=== PATIENT | female | born 1945 | race Caucasian/White ===

== ENCOUNTER 2016-02-26 12:07 | Emergency (ER) | payer MEDICARE ==
[2015-12-29 13:50] VITALS: BMI 24.2
[~2016-02-26 12:07] MED LIST: ACTOS30 MG PO; ADVAIR 250/501 DISK INH; AMARYL1 MG PO; ASPIRIN EC81 M1 PO; BAYER CHEWABLE81 MG PO; CARAFATE1 G/10 ML PO; CATAPRES0.1 MG PO; COMBIVENT RESPIM4 GM INH; CYCLOBENZAPRINE10 MG PO; FOSINOPRIL SODI40 MG PO; GLIMEPIRIDE1 MG PO; HYDRALAZINE HCL50 MG PO; IMDUR30 MG PO; INVOKANA100 MG PO; JANUVIA100 MG PO; JANUVIA25 MG; K-DUR20 MEQ PO; KLONOPIN1 MG PO; LASIX40 MG PO; LOPID600 MG PO; NEURONTIN 300300 MG PO; NITROQUICK0.4 MG SL; NORVASC5 MG GT; PAXIL20 MG PO; PLAVIX75 MG PO; PRILOSEC20 MG PO; PROTONIX40 MG PO; RANEXA500 MG PO; SYMBICORT 16010.2 GM INH; TOPROL XL100 MG PO; ULTRAM50 MG PO; ZETIA10 MG PO
[2016-02-26 13:28] LABS: BASOPHILS 0.7 % (0.0-2.0); EOSINOPHILS 4.3 % (0-7); HEMOGLOBIN 10.1 g/dL (12-16); IMMATURE GRANULOCYTES 0.1 % (0-5); LYMPHOCYTES 32.8 % (15-50); MCH 23.7 pg (26.0-34.0); MCHC 29.7 g/dL (31.0-37.0); MCV 79.8 fL (80.0-100.0); MEAN PLATELET VOLUME 10.3 fL (7.4-10.4); MONOCYTES 6.3 % (2-11); NEUTROPHILS 55.8 % (40-80); PLATELET COUNT 214 10x3/uL (130-400); RBC 4.26 10x6/uL (4.00-5.40); WBC 7.6 10x3/uL (4.8-10.8)
[2016-02-26 13:34] LABS: ALBUMIN 3.9 g/dL (3.4-5.0); ALKALINE PHOSPHATASE 65 U/L (46-116); ALT (SGPT) 34 U/L (10-68); BILIRUBIN - TOTAL 0.34 mg/dL (0.2-1.3); CALC OSMOLALITY 286 mosm/kg (275-300); CALCIUM 8.7 mg/dL (8.5-10.1); CARBON DIOXIDE 30.1 mmol/L (21.0-32.0); CHLORIDE - SERUM 104 mmol/L (98-107); CREATININE - SERUM 0.9 mg/dL (0.6-1.3); POTASSIUM - SERUM 3.6 mmol/L (3.5-5.1); PROTEIN - SERUM 7.7 g/dL (6.4-8.2); SODIUM 143 mmol/L (136-145); UREA NITROGEN 13 mg/dL (7-18); eGFR NON AFRICAN AMERICAN 65 mL/min (90-120)
[2016-02-26 13:35] LABS: GLUCOSE 129 mg/dL (74-106)
[2016-02-26 13:42] LABS: PRO BNP 719 pg/mL (0-125)
[2016-02-26 13:43] LABS: TROPONIN-I < 0.017 ng/mL (0.000-0.060)
--- NOTE | 2016-03-04 11:11 | CN ---
PATIENT NAME:EVANGELISTA FERREIRA MEDICAL RECORD: [id number] : 41 LOCATION:D.ER ADMIT DATE: ACCOUNT: [id number] CONSULTING PHYSICIAN: SHUKRI LOPEZ MD REFERRING PHYSICIAN: CECI MOROCHO MD DATE OF CONSULTATION: 02/26/2016 DIAGNOSES: 1. Angina. 2. Shortness of breath. 3. Dyspnea on exertion. 4. Coronary artery disease. 5. Previous percutaneous transluminal coronary angioplasty stent. 6. Hypertension. 7. Hyperlipidemia. HISTORY OF PRESENT ILLNESS: Mrs. Ferreira is status post recent 2-vessel PTCA stent. She has continued to have some anginal symptomatology and shortness of breath especially when using her arms above her head, but it is markedly improved from before the stent. Her EKG is with no ST-T abnormalities. Heart rate and blood pressure optimal on her current medications. PHYSICAL EXAMINATION: GENERAL APPEARANCE: Well-nourished, well-developed, appears stated age. Level of distress, comfortable. PSYCHIATRIC: Mental status, alert, normal affect. Orientation, oriented to time, place and person. EYES: Lids and conjunctiva, noninjected. No discharge, no pallor. ENT: Lips, teeth, gums, normal dentition. Oropharynx, no cyanosis, no pallor. NECK: Carotid arteries, bilateral normal upstroke, no bruits, no thrills. JUGULAR VEINS: No jugular venous pressure or distention. CERVICAL LYMPH NODES: Nontender, nonenlarged. THYROID: Not enlarged. Nontender. No nodules. LUNGS: Respiratory effort, unlabored. CHEST: Normal curvature. No thoracic deformity. No chest wall tenderness. Percussion, resonant. Auscultation, clear. No wheezes, no rales, no rhonchi. CARDIOVASCULAR: Precordial exam, nondisplaced. No heaves or pericardial thrills. Rate and rhythm, regular. Heart sounds, normal S1, normal S2. No S3, no gallop, no rub. Systolic murmur, not heard. Diastolic murmur, not heard. EXTREMITIES: No cyanosis, no edema. Peripheral pulses, full and equal in all extremities, except as noted. No bruits appreciated. ABDOMEN: Soft, nondistended. Normal aorta. No bruit. Nontender. No masses. Liver, nontender, no hepatomegaly. Spleen, nontender, no splenomegaly. MUSCULOSKELETAL: No joint tenderness. No joint swelling. No erythema. NEUROLOGICAL: Normal gait, normal strength, normal tone. SKIN: Warm and dry. REVIEW OF SYSTEMS: The patient reports easy bruising but reports no swollen glands. The patient reports no fever, no night sweats, no significant weight gain, no significant weight loss. No significant exercise tolerance. The patient reports no dry eyes, no irritation, no vision change. Patient reports no difficulty hearing and no ear pain. Patient reports no frequent nose bleeds or nose and sinus problems. Patient reports on arm pain on exertion. No shortness of breath while lying down. No history of heart murmur. Patient reports no cough, no wheezing or coughing up blood. Patient reports no CONSULT REPORT [id number] WHITE,EVANGELISTA SEN abdominal pain, no vomiting. Normal appetite. No diarrhea and not vomiting blood. No nausea and no constipation. Patient reports no incontinence. No difficulty urinating. No hematuria. No increased frequency. Patient reports no muscle aches. No weakness, no arthralgias, no back pain. No swelling of the extremities. Patient reports no abnormal mole, no jaundice, no rashes. Reports no loss of consciousness. No weakness and no numbness. No seizures, dizziness, or headaches. The patient reports no depression, no sleep disturbance, feeling safe in a relationship and no alcohol abuse. Patient reports on fatigue. Reports no runny nose or sinus pressure. No itching, no hives, and no frequent sneezing. OVERALL IMPRESSION: Anginal symptomatology. At this time, it is most likely chronic stable angina, reviewed her cardiac catheterization film. She has significant irregularities throughout all vessels with diffuse disease of all vessels. She would clearly be predisposed to angina, it is markedly better after her percutaneous transluminal coronary angioplasty stent. At this time, there is really no room for any other percutaneous transluminal coronary angioplasty stent areas. I would increase her Imdur to 90 mg b.i.d. We will follow up with [facility] in 1 week. TRANSINT:[id number] Voice Confirmation ID: [id number] DOCUMENT ID: [id number] SHUKRI LOPEZ MD at 1111 CC: [id number] DICTATION DATE: 02/26/16 1506 BOOKY: 02/26/16 1548 DEP ER 02/26/16 [facility] [address] [place] [address]
== END 2016-02-26 15:43 | disposition home or self-care (01) ==
LOC: D.ER 12:07
PROVIDERS: Emergency Medicine
DX: R06.00 Dyspnea, unspecified (principal); E11.9 Type 2 diabetes mellitus without complications; I25.10 Atherosclerotic heart disease of native coronary artery without angina pectoris; I50.9 Heart failure, unspecified; D64.9 Anemia, unspecified; I10 Essential (primary) hypertension; F17.200 Nicotine dependence, unspecified, uncomplicated

== ENCOUNTER 2016-04-02 12:49 | Inpatient (IN) | payer MEDICARE ==
[~2016-04-02] VITALS: Ht 162.6 cm; Wt 71.5 kg
--- NOTE | ~2016-04-02 | HEMODYNAMI ---
PATIENT:EVANGELISTA FERREIRA MEDICAL RECORD: [id number] : 41 LOCATION:[facility] D.2118 ADMISSION DATE: 04/02/16 Generatedon:04/03/20169:46 Patient name: EVANGELISTA FERREIRA Patient #: [id number] SSN: : 1 Date of study: 04/03/2016 Page: Of Hemodynamic Procedure Report Patient Data Patient Demographics Procedure consent was obtained First Name: EVANGELISTA Gender: Female Last Name: HANNA : 1945 [facility] Initial: SEN Age: 70 year(s) Patient #: [id number] Race: Additional ID: [id number] Contact details Address: [place] [address] State: [place] City: [place] Zip code: [address] Past Medical History Allergies Allergen Reaction Date Comments Reported Codeine 03/20/2015 Codeine 12/29/2015 Codeine 12/30/2015 Codeine 04/03/2016 Admission Admission Data Admission Date: 04/02/2016 Admission Time: 15:13 Room #: D.2118 Lab Results Lab Result Date: 04/03/2016 Lab Result Time: 0:00 Biochemistry Name Units Result Min Max BUN mg/dl 23 --(----)-* 7 18 Creatinine mg/dl 1 --(--*-)-- 0.6 1.3 CBC Name Units Result Min Max Hemoglobin g/dl 9.8 *-(----)-- 13.5 17.5 Procedure Procedure Types Cath Procedure Diagnostic Procedure LHC LHC w/Coronaries Miscellaneous Procedures Moderate Sedation up to 45 minutes Procedure Description Procedure Date Procedure Date: 04/03/2016 Procedure Start Time: 9:10 Procedure End Time: 9:42 Procedure Staff Name Function Sydney Peter RT Scrub Melanie Pereyra RN Nurse Lam Griffin RT Monitor Drew Villareal MD Performing Physician Procedure Data Cath Procedure Fluoroscopy Diagnostic fluoroscopy Total fluoroscopy Time: 4.2 time: 4.2 min min Diagnostic fluoroscopy Total fluoroscopy dose: 702 dose: 702 mGy mGy Contrast Material Contrast Material Type Amount (ml) Isovue 300 75 Entry Location Entry Primary Successful Side Size Upsize Upsize Entry Closure Succes sful Closure Location (Fr) 1 (Fr) 2 (Fr) Remarks Device Remarks Femoral Right 5 Fr vein Femoral Right 5 Fr Exoseal artery Diagnostic catheters Device Type Used For End Catheter Placement Cordis 5Fr Pigtail LV Angiography Catheter (MP) Cordis 5Fr JL 4.0 Left Coronary Catheter (MP) Angiography Cordis 5Fr 3DRC Catheter Right Coronary (MP) Angiography Cordis 5Fr JL 4.0 Left Coronary Catheter (MP) Angiography Procedure Complications No complications Procedure Medications Medication Administration Route Dosage Oxygen NC 2 l/min Heparin Flush Bag added to field 2 bags (1000units/500ml NS) Lidocaine 2% added to field 20 Versed I.V. 1 mg Fentanyl I.V. 50 mcg Versed I.V. 0.5 mg Fentanyl I.V. 25 mcg Versed I.V. 0.5 mg Fentanyl I.V. 25 mcg Hemodynamics Rest HGB: 9.8 (g/dl) Heart Rate: 76 (bpm) Pressure Samples Time Site Value (mmHg) Purpose Heart Use Rate(bpm) 9:17 LV 201/19,38 EDP 77 9:18 AO 188/83(121) Pullback 76 9:18 LV 207/27,21 Pullback 76 Gradients Valve Time Site 1 Site 2 Mean SEP/DFP Peak To Heart Use (mmHg) (sec/min) Peak Rate (mmHg) (bpm) Aortic 9:18 LV AO 19 22 19 76 207/27,21 188/83(121) Calculations Valve P-P Mean Valve Index Valve Source Name Gradient Area Flow (cm2) Aortic 19 19 19 19 Snapshots Pre Cath Intra NCS Post Cath Vital Signs Time Heart Resp SPO2 etCO2 [id number] NIBP (mmHg) Rhythm Pain Sedation Rate (ipm) (%) (mmHg) (mmHg) Status Level (bpm) 8:55:17 77 19 100 0 0 151/79(120) NSR 0 (11) 10(A) , No pain 8:59:40 75 14 98 0 0 150/77(118) NSR 0 (11) 10(A) , No pain 9:04:02 75 18 97 0 0 142/70(114) NSR 0 (11) 10(A) , No pain 9:08:26 75 14 96 0 0 145/66(107) NSR 0 (11) 10(A) , No pain 9:12:46 77 14 96 0 0 155/77(118) NSR 0 (11) 9(A) , No pain 9:17:08 77 15 95 0 0 137/73(107) NSR 0 (11) 9(A) , No pain 9:21:26 76 15 96 0 0 139/71(108) NSR 0 (11) 9(A) , No pain 9:25:42 76 15 96 0 0 139/69(106) NSR 0 (11) 9(A) , No pain 9:30:01 75 15 95 0 0 127/69(100) NSR 0 (11) 9(A) , No pain 9:34:16 75 15 95 0 0 133/69(102) NSR 0 (11) 9(A) , No pain 9:38:36 75 14 96 0 0 138/67(108) NSR 0 (11) 9(A) , No pain 9:42:01 76 14 95 0 0 138/71(110) NSR 0 (11) 9(A) , No pain Medications Time Medication Route Dose Verified Delivered Reason Notes Effec tiveness by by 8:54:21 Oxygen NC 2 Drew Melanie for l/min Mono Pereyra RN arrhythmia 8:54:27 Heparin Flush added 2 Drew Drew used for Bag to bags Mono Villareal MD procedure (1000units/500ml field NS) 8:54:40 Lidocaine 2% added 20ml Drew Drew used for to vial Mono Villareal MD procedure field 9:01:46 Versed I.V. 1 mg Drew Melanie Per Mono Pereyra RN physician 9:01:52 Fentanyl I.V. 50 Drew Melanie for mcg Mono Pereyra RN sedation 9:04:41 Versed I.V. 0.5 Drew Melanie Per mg Mono Pereyra RN physician 9:04:50 Fentanyl I.V. 25 Drew Melanie for mcg Mono Pereyra RN sedation 9:10:42 Versed I.V. 0.5 Drew Melanie Per mg Mono Pereyra RN physician 9:10:50 Fentanyl I.V. 25 Drew Navarro for [facility] [place] Mono Pereyra RN sedation Procedure Log Time Note 8:34:28 ACC Patient presents with Unstable Angina CCS Anginal Class 3--Marked limitation of physical activity, angina occurs with ordinary activity.. 8:34:31 Diagnostic Cath status Urgent 8:34:33 Lam Suit RT(R) sent for patient. Start room use. 8:34:36 Time tracking: Call back 8:34:41 Plan of Care:Hemodynamics will remain stable., Cardiac rhythm will remain stable., Comfort level will be maintained., Respiratory function will remain adequate., Patient/ family verbilizes understanding of procedure., Procedure tolerated without complication., Recovers from procedure without complications.. 8:45:21 Patient received from Outpatients to CCL 1 Alert and oriented. Tansferred to table in Supine position. 8:45:22 Warm blankets applied, and katherine hugger turned on for patient comfort. 8:45:23 Correct patient and procedure confirmed by team. 8:45:26 Signed procedure consent form obtained from patient. 8:54:00 Vital chart was started 8:54:21 Oxygen 2 l/min NC was given by Melanie Pereyra RN; for arrhythmia; 8:54:27 Heparin Flush Bag (1000units/500ml NS) 2 bags added to field was given by Drew Villareal MD; used for procedure; 8:54:40 Lidocaine 2% 20ml vial added to field was given by Drew Villareal MD; used for procedure; 8:56:15 Baseline sample Acquired. 8:56:17 Rhythm: sinus rhythm 8:56:23 Full Disclosure recording started 8:56:32 H&P Date Dictated: 04/02/2016 Within 30 days and on chart.. 8:56:34 Pre-procedure instructions explained to patient. 8:56:34 Pre-op teaching completed and patient verbalized understanding. 8:56:36 Family in patients room. 8:56:37 Patient NPO since Midnight. 8:56:53 Patient allergic to Codeine 8:56:57 Is the patient allergic to Iodine/contrast media? No. 8:57:02 Is patient on blood thinner?Yes 8:57:07 ACC The patient was administered the following blood thiners within the last 24 hours: ACCPlavix 8:57:19 Patient diabetic? Yes. 8:57:26 If diabetic: On Metformin? No 8:57:27 ----Pre-sedation anethsthesia assessment.---- 8:57:30 Previous problem with sedation/anesthesia? No ? 8:57:33 Snore? Yes 8:57:35 Sleep apnea? Yes 8:57:37 Deviated septum? No 8:57:39 Opens mouth fully? Yes 8:57:40 Sticks out tongue? Yes 8:57:46 Airway obstruction? Yes COPD 8:57:53 Dentures? Yes IN TIGHT 8:57:57 Pre procedure: right dorsailis pedis pulse 1+ Palpable, but thready & weak; easily obliterated 8:58:01 Patient pain scale 0/10 ?. 8:58:10 IV patent on arrival in left hand with 0.9% NaCl at 10ml/hr. 9:00:58 Lab Result : BUN 23 mg/dl 9:00:58 Lab Result : Hemoglobin 9.8 g/dl 9:00:58 Lab Result : Creatinine 1 mg/dl 9:01:02 Lab results completed and on chart. 9:01:05 Right groin area was prepped with chlora-prep and draped in sterile fashion 9::09 Alarms reviewed by R. N. 9:01:09 Sharps counted by scrub and verified by R.N. 9:01:12 --------ALL STOP TIME OUT------ 9:01:13 Final Timeout: patient, procedure, and site verified with staff and physician. All members of the team are in agreement. 9:01:14 Right groin site verified by team. 9:01:19 Physical assessment completed. ASA score P 2 - A patient with mild systemic disease as per Drew Villareal MD. 9:01:23 Sedation plan: IV Moderate Sedation Versed, Fentanyl 9:01:46 Versed 1 mg I.V. was given by Melanie Pereyra RN; Per physician; 9:01:52 Fentanyl 50 mcg I.V. was given by Melanie Pereyra RN; for sedation; 9:04:41 Versed 0.5 mg I.V. was given by Melanie Pereyra RN; Per physician; 9:04:50 Fentanyl 25 mcg I.V. was given by Melanie Pereyra RN; for sedation; 9:08:01 Use device set Femoral Dx 9:08:02 Acist Syringe opened to sterile field. 9:08:03 Bag Decanter opened to sterile field. 9:08:03 Medline Cath Pack opened to sterile field. 9:08:04 Terumo 5Fr Vallonia Sheath opened to sterile field. 9:08:04 St Tima 260cm J .035 wire opened to sterile field. 9:08:06 Acist Hand Control opened to sterile field. 9:08:06 Acist Manifold opened to sterile field. 9:08:07 Cordis Infinity 5Fr Multipack catheter opened to sterile field. 9:08:12 Procedure started. 9:08:57 Zero performed for pressure channel P1 9:10:10 Local anesthetic to right femoral artery with Lidocaine 2% by Sydney RAYMUNDO(R).INITIAL ACCESS ONLY 9:10:19 A 5 Fr sheath was inserted into the Right Femoral vein 9:10:42 Versed 0.5 mg I.V. was given by Melanie Pereyra RN; Per physician; 9:10:50 Fentanyl 25 mcg I.V. was given by Melanie Pereyra RN; for sedation; 9:13:22 Terumo 5Fr Vallonia Sheath opened to sterile field. 9:14:47 A 5 Fr sheath was inserted into the Right Femoral artery 9:17:18 A Cordis 5Fr Pigtail Catheter (MP) was advanced over the wire and used for LV Angiography. 9:17:22 LV angiography performed. 9:17:26 LV gram done using MERLOS 9:17:27 LV hemodynamics recorded. 9:17:32 Injector settings: Ml/sec: 5, Volume: 15, 9:18:14 EF : 30 % 9:18:36 Catheter removed. 9:18:52 A Cordis 5Fr JL 4.0 Catheter (MP) was advanced over the wire and used for Left Coronary Angiography. 9:19:05 LCA angiography performed. 9:22:46 Catheter removed. 9:22:53 A Cordis 5Fr 3DRC Catheter (MP) was advanced over the wire and used for Right Coronary Angiography. 9:22:57 RCA angiography performed. 9:28:25 Catheter removed. 9:29:25 A Cordis 5Fr JL 4.0 Catheter (MP) was advanced over the wire and used for Left Coronary Angiography. 9:31:17 LCA angiography performed. 9:38:16 Catheter removed. 9:38:27 Sheath removed intact; hemostasis achieved with Exoseal to the Right Femoral artery. 9:39:22 Cordis 5Fr Exoseal opened to sterile field. 9:39:26 Procedure ended.(Physican Out) 9:39:32 Fluoroscopy time 04.20 minutes. 9:39:46 Flurop Dose total: 702 9:39:46 Fluoroscopy dose: 702 mGy 9:39:55 Contrast amount:Isovue 300 75ml. 9:39:57 Sharps counted by scrub and verified by R.N. 9:39:58 Insertion/operative site no bleeding no hematoma. 9:40:01 Post-op/insertion site Right Femoral artery dressed using a 4 x 4 and Tegaderm. 9:40:05 Post right femoral artery:stable 9:41:06 Post Procedure Pulses reassessed and unchanged 9:41:08 Post procedure: right dorsailis pedis pulse 1+ Palpable, but thready & weak; easily obliterated. 9:41:11 Post procedure rhythm: sinus rhythm 9:41:12 Post procedure instruction explained to patient.Patient verbalizes understanding. 9:41:44 Procedure type changed to Cath procedure, Diagnostic procedure, LHC, LHC w/Coronaries, Miscellaneous Procedures, Moderate Sedation up to 45 minutes 9:41:48 Procedure and supply charges have been captured, reviewed, submitted and are correct. 9:42:08 Procedure Complication : No complications 9:42:11 Vital chart was stopped 9:42:11 See physician's report for complete and final results. 9:42:12 Report given to PCU. 9:42:15 Patient transfered to PCU with Bed. 9:42:17 Procedure ended. 9:42:17 Full Disclosure recording stopped 9:42:21 End room use (Document Last) Device Usage Item Name Manufacture Quantity Catalog Hospital Part Current Minimal Lot # / Number Charge Number Stock Stock Serial# Code Acist Acist 1 [id number] [id number] 055948 [id number] 20 Syringe Medical Measurabl Inc Bag Microtek 1 2002S 101484 64574 [id number] 5 Yolto Inc. Medline Cardinal 1 [id number] [id number] 38013 987428 5 Cath Pack Health Terumo Terumo 2 [id number] [id number] 072672 788811 [address] Tima 1 [id number] 251082 205387 606558 30 260cm J .035 wire Acist Acist 1 44596 481597 340926 092455 5 Hand Medical Control Systems Inc Acist Acist 1 10712 389572 399485 059662 5 Manifold Medical Systems Inc Cordis Cardinal 1 [id number] 051870 17412 427474 30 Infinity Health 5Fr Multipack catheter Cordis Cardinal 1 [id number] 5 5Fr Health Pigtail Catheter (MP) Cordis Cardinal 1 [id number] 5 5Fr JL Health 4.0 Catheter (MP) Cordis Cardinal 1 [id number] 5 5Fr 3DRC Health Catheter (MP) Cordis Cardinal 1 EX500 737122 358745 028401 10 5Fr Health Exoseal Signature Audit [place] Stage Time Signature Unsigned Intra-Procedure 04/03/2016 Lam Griffin 9:46:24 AM RT(R) Signatures Monitor : Lam Griffin RT Signature : Date : Time : [address] [id number] [facility] [place] [address]
[2016-04-02 14:05] LABS: BASOPHILS 0.3 % (0.0-2.0); EOSINOPHILS 0.1 % (0-7); HEMATOCRIT 34.5 % (36.0-48.0); HEMOGLOBIN 10.2 g/dL (12-16); IMMATURE GRANULOCYTES 0.3 % (0-5); LYMPHOCYTES 12.1 % (15-50); MCH 23.5 pg (26.0-34.0); MCHC 29.6 g/dL (31.0-37.0); MCV 79.5 fL (80.0-100.0); MEAN PLATELET VOLUME 11.4 fL (7.4-10.4); MONOCYTES 5.7 % (2-11); NEUTROPHILS 81.5 % (40-80); PLATELET COUNT 224 10x3/uL (130-400); RBC 4.34 10x6/uL (4.00-5.40); RDW 16.3 % (11.5-14.5); WBC 11.6 10x3/uL (4.8-10.8)
[2016-04-02 14:29] LABS: ALBUMIN 3.8 g/dL (3.4-5.0); ANION GAP 17.7 mmol/L (8-16); BILIRUBIN - TOTAL 0.85 mg/dL (0.2-1.3); CALCIUM 8.5 mg/dL (8.5-10.1); CARBON DIOXIDE 26.1 mmol/L (21.0-32.0); CREATININE - SERUM 1.1 mg/dL (0.6-1.3); POTASSIUM - SERUM 3.8 mmol/L (3.5-5.1); PROTEIN - SERUM 7.3 g/dL (6.4-8.2)
[2016-04-02 14:46] LABS: TROPONIN-I 3.419 ng/mL (0.000-0.060)
[2016-04-02 15:12] LABS: CKMB 22.8 U/L (0.0-3.6); CREATINE KINASE 247 UL (21-215)
[2016-04-02 15:44] LABS: PRO BNP 19922 pg/mL (0-125)
[2016-04-02] MEDS ORDERED: ISOSORBIDE MONO60 M1 PO (16:38)
[2016-04-02] MEDS ORDERED: FUROSEMIDE20 MG PO (16:43)
[2016-04-02] MEDS ORDERED: RANEXA500 MG PO (16:52)
[2016-04-02] MEDS ORDERED: [UNRECOGNIZED DRUG - OTHER] (16:59)
[2016-04-02 17:13] VITALS: BP 124/55; BMI 27.5
--- NOTE | 2016-04-02 17:57 | NUR ---
DR. REYNOSO HERE. ORDERS RECIEVED. DENES ANY NEEDS AT PRESENT TIME. WILL MONITOR
[2016-04-02] MEDS ORDERED: METOPROLOL TAR100 M1 PO (20:27)
[2016-04-02 20:51] VITALS: BP 105/41
--- NOTE | 2016-04-02 22:32 | NUR ---
INITIAL ROUNDS COMPLETED AT 1910 HRS. PT DENEID ANY DISCOMFORT. ASSESSMENT COMPKETED AT 1950 HRS. PT WAS SR NOW UCAF HR 103. IV TO L HAND SL. OLD R MASECTOMY NOTED. LUNGS DIMINISHED IN BASES BILAT. CROCKETT. PALBABLE PEDAL PULSES. VSS. PT ASYMPTOMATIC. PT BACK TO SR AOUND [address] REYNOSO NOTEIFIED AT 2030 HRS OF TRANSIENT A-FIB, VS AND NOW SR. NEW ORDERS RECEIVED AND NOTED. PM MEDS GIVEN. PT CURRENTLY WATCHING TV WITH DAUGHTER AT BEDSIDE AND HOME CPAP MACHIME. WILL CONTINUE TO MONITOR.
[2016-04-03 00:30] VITALS: BP 121/56
--- NOTE | 2016-04-03 00:31 | NUR ---
PT RESTING WITH EYES CLOSED. RESP EVEN AND REGULAR. SR UP X2, CALL LIGHT WITHIN REACH.
--- NOTE | 2016-04-03 02:50 | NUR ---
PT AWAKE; DENIES ANY DISCOMFORT. WILL CONTINUE TO MONIOTR.
[2016-04-03 04:30] VITALS: BP 122/53
--- NOTE | 2016-04-03 04:33 | NUR ---
PT AWAKE; DENIES ANY DISCOMOFRT. WILL CONTINUE TO MONITOR.
[2016-04-03 04:59] LABS: BASOPHILS 0 % (0.0-2.0); EOSINOPHILS 0 % (0-7); HEMOGLOBIN 9.8 g/dL (12-16); IMMATURE GRANULOCYTES 0.1 % (0-5); LYMPHOCYTES 8.8 % (15-50); MCH 23.4 pg (26.0-34.0); MCHC 29.7 g/dL (31.0-37.0); MCV 78.8 fL (80.0-100.0); MEAN PLATELET VOLUME 11.2 fL (7.4-10.4); MONOCYTES 2.3 % (2-11); NEUTROPHILS 88.8 % (40-80); PLATELET COUNT 190 10x3/uL (130-400); RBC 4.19 10x6/uL (4.00-5.40); RDW 16.2 % (11.5-14.5)
[2016-04-03 05:01] LABS: WBC 8.3 10x3/uL (4.8-10.8)
[2016-04-03 05:21] LABS: ANION GAP 20.1 mmol/L (8-16); CALCIUM 8.9 mg/dL (8.5-10.1); CARBON DIOXIDE 21.1 mmol/L (21.0-32.0); POTASSIUM - SERUM 4.2 mmol/L (3.5-5.1)
--- NOTE | 2016-04-03 06:12 | NUR ---
VSS THEOUHGOUT NIGHT. SR PER CM. PT DENIED ANY DISCOMFORT. NEEDS MET; WILL CONTINUE TO MONITOR.
[2016-04-03 08:28] VITALS: BP 124/51
--- NOTE | 2016-04-03 08:30 | NUR ---
ALERT AND ORIENTED X4. FAMILY AT BEDSIDE. PRE-OP FOR BARBER SHOP MANAGER COMPLETE. TAKEN TO BARBER SHOP MANAGER VIA BED. CONTINUE PLAN OF CARE AND SAFETY PRECAUTIONS.
[2016-04-03 08:56] LABS: CKMB 14.2 U/L (0.0-3.6); CREATINE KINASE 233 UL (21-215)
[2016-04-03 08:57] LABS: TROPONIN-I 1.963 ng/mL (0.000-0.060)
--- NOTE | 2016-04-03 10:00 | NUR ---
RETURN TO ROOM VIA BED FROM MEDICAL IMAGING TECH. SEDATED. AROUSES EASILY TO VOICE. FAMILY AT BEDSIDE. SINUS RHYTHM 67bpm ON TELEMETRY. RT GROIN DRESSING CLEAN, DRY INTACT. FREE FROM BLEEDING. NO HEMATOMA. PULSES +1 BILATERALLY. BP-125/58, R-18, O2-95% 2L NC. CONTINUE TO MONITOR. REMAIN FLAT FOR NEXT 2HRS PER . CONTINUE PLAN OF CARE. BED LOCKED AND LOW. CALL LIGHT IN REACH. TWO SIDERAILS UP.
--- NOTE | 2016-04-03 11:28 | NUR ---
ALERT AND ORIENTED X4. CONTINUE TO LAY FLAT IN BED. RT GROIN DRESSING CLEAN DRY INTACT. NO BLEEDING. NO HEMATOMA. PEDAL PULSES +1 BILATERALLY. DENIES SOB. CONVERT FROM SINUS RHYTHM 63bpm TO UNCONTROLLED A-FIB 106bpm ON TELEMETRY. FAMILY AT BEDSIDE. CONTINUE TO MONITOR. HAS HISTORY OF A-FIB. BED LOCKED AND LOW. CALL LIGHT IN REACH. TWO SIDERAILS UP.
[2016-04-03 12:42] VITALS: BP 102/59
[2016-04-03 16:03] VITALS: BP 127/51
[2016-04-03 20:00] VITALS: BP 115/73
--- NOTE | 2016-04-03 23:44 | NUR ---
INITIAL ROUNDS COMPLETED AT 1914 HRS. PT DENIED ANY DISCOMFORT. ASSESSMENT COMPELTED AT 2044 HRS. VSS. SR PER CM HR 94 AND OCC PVC'S. IV TO L HAND WITH NS AT 50CC/HR AND DOBUTREX AT 3MCG/KG/MIN (7CC/HR). IV PATENT. LUNGS DIMINISHED IN BASES BILAT. R GROIN CLEAN, DRY AND INTACT WITH NOW BLEEDING OR SWELLING NOTED. GOOD PEDAL PULSES. PM MEDS GIVNE PM FSBS 223. PT NOT EATING. PT CURRENTLY RESTING WITH EYES CLOSED WITH HOME CPAP. RESP EVENA ND REGULAR. DAUGHTER AT BEDSIDE. SR UP X2, CALL LIGHT WITHIN REACH.
[2016-04-04] VITALS: BP 144/67
--- NOTE | 2016-04-04 01:38 | NUR ---
PT RESTING WITH EYES CLOSED. RESP EVEN AND REGULAR. SR UP X2, CALL LIGHT WITHIN REACH.
[2016-04-04 04:00] VITALS: BP 121/50
--- NOTE | 2016-04-04 04:15 | NUR ---
PT RESTING WITH EYES CLOSED. RESP EVEN AND REGULAR. SR UP X2, CALL LIGHT WITHIN REACH.
--- NOTE | 2016-04-04 06:16 | NUR ---
VSS THORUGHOUT NIGHT. PT DENIED ANY DISCOMFORT. AM FSBS 141. NO COVERAGE NEEDED. R GROIN CLEAN, DRY AND INTACT. NEEDS MET; WILL CONTINUE TO MONITOR.
[2016-04-04 06:37] LABS: BASOPHILS 0.2 % (0.0-2.0); HEMATOCRIT 30.8 % (36.0-48.0); HEMOGLOBIN 9.2 g/dL (12-16); IMMATURE GRANULOCYTES 0.1 % (0-5); LYMPHOCYTES 22.8 % (15-50); MCH 23.4 pg (26.0-34.0); MCHC 29.9 g/dL (31.0-37.0); MCV 78.4 fL (80.0-100.0); MEAN PLATELET VOLUME 11.1 fL (7.4-10.4); MONOCYTES 6.1 % (2-11); NEUTROPHILS 68.8 % (40-80); PLATELET COUNT 220 10x3/uL (130-400); RBC 3.93 10x6/uL (4.00-5.40); RDW 16.3 % (11.5-14.5); WBC 8.8 10x3/uL (4.8-10.8)
[2016-04-04 06:43] LABS: CALCIUM 8.1 mg/dL (8.5-10.1); CREATININE - SERUM 1.1 mg/dL (0.6-1.3)
[2016-04-04 06:44] LABS: CARBON DIOXIDE 27.2 mmol/L (21.0-32.0); POTASSIUM - SERUM 3.2 mmol/L (3.5-5.1)
[2016-04-04 08:03] VITALS: BP 130/79
--- NOTE | 2016-04-04 11:29 | NUR ---
Patient Name: EVANGELISTA FERREIRA Admission Status: ER Accout number: [id number] Admission Date: 04-03-2016 : 1945 Admission Diagnosis: Attending: DAVID Current LOS: 1 Anticipated DC Date: Planned Disposition: Home Primary Insurance: [employer] CHO[employer] PPO MCR ADVANT Discharge Planning Comments: * Is the patient Alert and Oriented? Yes 0 * How many steps to enter\\exit or inside your home? RAMP 0 * PCP DR. RODNEY 0 * Pharmacy [facility] 0 * Preadmission Environment Home Alone 0 * ADLs Independent 0 * Equipment Cane 0 * Other Equipment NO MEDICAL EQUIPMENT PROVIDER PREFERENCE 0 * List name and contact numbers for known caregivers / representatives who currently or will assist patient after discharge: SIVAKUMAR RIVERA, DAUGHTER, 0 * Community resources currently utilized None 0 * Please name any agencies selected above. NONE 0 * Additional services required to return to the preadmission environment? No 0 * Can the patient safely return to the preadmission environment? Yes 0 * Has this patient been hospitalized within the prior 30 days at any hospital? No 0 CM MET WITH PT AND DAUGHTER IN ROOM TO DISCUSS DISCHARGE PLANNING AND NEEDS. PT REPORTS LIVING AT HOME INDEPENDENTLY AND ALONE. PT HAS A CANE THAT SHE USES ONLY WHEN SHE FEELS A LITTLE "WOBBLY" WHEN WALKING. PT HAS NO MEDICAL EQUIPMENT PROVIDER PREFERENCE AND NO OUTSIDE SERVICES ASSISTING IN THE HOME. PT REPORTS HER DAUGHTER OWNS A STORE VERY CLOSE (WALKING DISTANCE FOR PT) TO HER HOME AND FAMILY IS CHECKING ON HER FREQUENTLY THROUGH THE DAY. PT WILL NOT CONSIDER REHAB OR OTHER OUT OF HOME PLACEMENTS. CM DISCUSSED AVAILABILITY OF HOME HEALTH, REHAB SERVICES AND MEDICAL EQUIPMENT. PT AND DAUGHTER DENY DISCHARGE NEEDS, PT REPORTS HER DAUGHTER WILL PICK HER UP FOR DISCHARGE HOME. CM PROVIDED HOME HEALTH CARE CHOICE AND INFORMATION ON LOCAL HOME HEALTH AGENCIES FOR CONSIDERATION. PT PLANS TO DISCHARGE HOME INDEPENDENTLY, DENIES NEEDS. CM TO FOLLOW AND ASSIST NEEDED. Data Analytics Specialist: Wolf Mayorga
[2016-04-04 12:19] VITALS: BP 121/48
[2016-04-04 12:42] VITALS: Ht 162.6 cm; Wt 71.5 kg
--- NOTE | 2016-04-04 12:58 | NUR ---
ALERT AND ORIENTED X4. RESTING IN BED. FAMILY AT BEDSIDE. DENIES SOB. DOBUTAMINE INFUSING ORDERED. CURRENTLY SINUS RHYTHM 70bpm ON TELEMETRY. DENIES PAIN. INITIATE ELECTROLYTE PROTOCOL. POTASSIUM REPLACEMENT. LAB DRAW ORDERED PER PROTOCOL. CONTINUE PLAN OF CARE. BED LOCKED AND LOW. CALL LIGHT IN REACH. TWO SIDERAILS UP.
[2016-04-04 15:41] LABS: % SATURATION 4 % (15-55); IRON 22 ug/dl (35-150); TOTAL IRON BIND CAPACITY 462 ug/dl (260-445); UNSAT IRON BIND CAPACITY 440 ug/dl (150-375)
[2016-04-04 16:12] VITALS: BP 122/48
[2016-04-04 20:23] VITALS: BP 126/65
[2016-04-05] VITALS (7 sets, daily range): BP systolic 108–140; BP diastolic 55–63
[2016-04-05 06:00] LABS: BASOPHILS 0.6 % (0.0-2.0); EOSINOPHILS 5.6 % (0-7); HEMATOCRIT 28.5 % (36.0-48.0); IMMATURE GRANULOCYTES 0.4 % (0-5); LYMPHOCYTES 26.1 % (15-50); MCH 22.9 pg (26.0-34.0); MCHC 28.1 g/dL (31.0-37.0); MEAN PLATELET VOLUME 11.2 fL (7.4-10.4); MONOCYTES 7.6 % (2-11); NEUTROPHILS 59.7 % (40-80); PLATELET COUNT 228 10x3/uL (130-400); RBC 3.49 10x6/uL (4.00-5.40); RDW 17.1 % (11.5-14.5); WBC 8.2 10x3/uL (4.8-10.8)
[2016-04-05 06:16] LABS: MCV 81.7 fL (80.0-100.0)
[2016-04-05 06:46] LABS: ANION GAP 14.3 mmol/L (8-16); CALCIUM 7.6 mg/dL (8.5-10.1); CARBON DIOXIDE 25.1 mmol/L (21.0-32.0); CREATININE - SERUM 1.5 mg/dL (0.6-1.3); POTASSIUM - SERUM 3.4 mmol/L (3.5-5.1)
[2016-04-05 10:19] LABS: FOLATE (FOLIC ACID) - SERUM 10.4 ng/mL (>3.0)
[2016-04-05 13:36] LABS: BASOPHILS 0.7 % (0.0-2.0); EOSINOPHILS 5.7 % (0-7); HEMATOCRIT 33.3 % (36.0-48.0); IMMATURE GRANULOCYTES 0.1 % (0-5); LYMPHOCYTES 21.4 % (15-50); MCH 23.8 pg (26.0-34.0); MEAN PLATELET VOLUME 10.8 fL (7.4-10.4); MONOCYTES 7.8 % (2-11); NEUTROPHILS 64.3 % (40-80); PLATELET COUNT 243 10x3/uL (130-400); RDW 16.7 % (11.5-14.5); WBC 7.3 10x3/uL (4.8-10.8)
[2016-04-05 13:47] LABS: ANION GAP 16.5 mmol/L (8-16); CALCIUM 8.6 mg/dL (8.5-10.1); CARBON DIOXIDE 26.7 mmol/L (21.0-32.0); CREATININE - SERUM 1.3 mg/dL (0.6-1.3); POTASSIUM - SERUM 4.2 mmol/L (3.5-5.1)
[2016-04-05 13:58] LABS: MCV 79.3 fL (80.0-100.0)
--- NOTE | 2016-04-05 15:29 | OP ---
PATIENT NAME: EVANGELISTA FERREIRA MEDICAL RECORD: [id number] :41 LOCATION:D.M2 D.2118 ADMISSION DATE:04/03/16 SURGEON: HARJEET REYNOSO M.D. DATE OF OPERATION: 04/03/2016 PROCEDURES PERFORMED: 1. Selective coronary angiography. 2. Left heart catheterization with ventriculogram. INDICATION: A 70-year-old presents with non-Q-wave myocardial infarction. EQUIPMENT USED: A 5-Frisian JL4, Bradley right, pigtail catheter. TECHNIQUE: A 6-Frisian sheath was inserted in retrograde fashion in the right common femoral artery. Next, selective coronary angiography was performed in standard 5-Frisian JL4 and Bradley right. Left heart catheterization performed using pigtail catheter. CORONARY ANATOMY: 1. Left main: Left main trunk is moderate in caliber. It gives rise to the LAD and circumflex. There is no obstruction. 2. LAD: This is a moderate caliber vessel extending to the apex. The proximal mid vessel has been stented. The stents are widely patent. The first diagonal branch is diffusely diseased, but appears unchanged from previous study. 3. Circumflex: This vessel is moderate in caliber. The proximal vessel has a 50% stenosis. This appears unchanged from previous study. The stent below demonstrates diffuse in-stent restenosis, but nothing worse than 30% and again unchanged from previous study. The high lateral branch circumflex diffuse disease and subtotal but appears to be unchanged from previous study. This vessel is less than 2 mm in diameter. 4. Right coronary: This vessel is large in caliber and dominant. The proximal mid stents are widely patent. There is no evidence of restenosis. 5. Left ventricle: Left ventricle is normal in size. The inferior wall is severely hypokinetic. There is moderate LV dysfunction noted. Estimated ejection fraction is in the order 30%. IMPRESSION: 1. Moderate coronary artery disease. 2. Moderate to severe left ventricular dysfunction. RECOMMENDATIONS: I suspect the troponin elevation may have been secondary to her congestive heart failure. At this point, we will continue medical management. TRANSINT:[id number] Voice Confirmation ID: [id number] DOCUMENT ID: [id number] HARJEET REYNOSO M.D. at 1529 CC: [id number] DICTATION DATE: 04/03/16 0948 REACTOR FUELING SUPERVISOR: 04/03/16 1005 ADM IN [facility] [address] [place] [id number]
[2016-04-06 05:52] LABS: BASOPHILS 0.7 % (0.0-2.0); EOSINOPHILS 7.5 % (0-7); HEMATOCRIT 34.1 % (36.0-48.0); HEMOGLOBIN 10.2 g/dL (12-16); IMMATURE GRANULOCYTES 0.1 % (0-5); LYMPHOCYTES 29.9 % (15-50); MCH 23.3 pg (26.0-34.0); MCHC 29.9 g/dL (31.0-37.0); MEAN PLATELET VOLUME 10.4 fL (7.4-10.4); MONOCYTES 11.1 % (2-11); NEUTROPHILS 50.7 % (40-80); PLATELET COUNT 237 10x3/uL (130-400); RBC 4.37 10x6/uL (4.00-5.40); RDW 16.7 % (11.5-14.5); WBC 7.4 10x3/uL (4.8-10.8)
[2016-04-06 06:27] LABS: ANION GAP 13.9 mmol/L (8-16); CALCIUM 9.2 mg/dL (8.5-10.1); CARBON DIOXIDE 28.9 mmol/L (21.0-32.0); CREATININE - SERUM 1.2 mg/dL (0.6-1.3); MAGNESIUM - SERUM 1.8 mg/dL (1.8-2.4); PHOSPHOROUS 4.9 mg/dL (2.5-4.9); POTASSIUM - SERUM 3.8 mmol/L (3.5-5.1)
[2016-04-06 08:00] VITALS: BP 114/60
--- NOTE | 2016-04-06 08:50 | NUR ---
Pt in high tobar's position, just completed eating breakfast tray. V/S obtained, FSBS 223. Pt denies pain or any other needs at this time.
--- NOTE | 2016-04-06 09:04 | NUR ---
Pt stands without assistance to bedside scale. Dobutamine rate recalculated per daily weight at 3 mcg/kg/min equaling a rate of 6.5 mL/hr. AM dose of Rocephin not compatible with Dobutamine. Report given to ROBERT Roldan. Will hold Dobutamine until Rocephin infusion complete. BP 110/58, Daily Imdur given. Will hold metoprolol and metoprolol XR until BP rechecked in 1 hour. ROBERT Roldan notified.
[2016-04-06 09:05] VITALS: BP 110/58
[2016-04-06 10:48] VITALS: BP 118/64
[2016-04-06 12:33] VITALS: BP 125/61
[2016-04-06 16:00] VITALS: BP 126/60
--- NOTE | 2016-04-06 16:34 | NUR ---
FSBS 204. PT REC'D 8 UNITS PER SS INSULIN. PT IS SITTING UP IN BED WATCHING TV. PT REQUESTED AND WAS PROVIDED WITH HER LASIX EARLY R/T NOT WANTING TO BE UP TOO OFTEN IN THE NIGHT TO VOID. INITIATED PTS IVPB INFUSING VIA L.FA PIV WITH DRSG CDI AND SWAB CAPS IN USE. INFUSING OVER 2 HOURS. NO FURTHER NEEDS AT THIS TIME. WILL CTM.
[2016-04-06 19:49] VITALS: BP 136/64
[2016-04-07] VITALS (7 sets, daily range): BP systolic 105–135; BP diastolic 49–96
[2016-04-07 06:12] LABS: BASOPHILS 0.8 % (0.0-2.0); EOSINOPHILS 7.4 % (0-7); HEMATOCRIT 35.6 % (36.0-48.0); HEMOGLOBIN 10.7 g/dL (12-16); IMMATURE GRANULOCYTES 0.2 % (0-5); LYMPHOCYTES 30.8 % (15-50); MCH 23.5 pg (26.0-34.0); MCHC 30.1 g/dL (31.0-37.0); MCV 78.2 fL (80.0-100.0); MEAN PLATELET VOLUME 11.1 fL (7.4-10.4); MONOCYTES 8.9 % (2-11); NEUTROPHILS 51.9 % (40-80); PLATELET COUNT 271 10x3/uL (130-400); RBC 4.55 10x6/uL (4.00-5.40); RDW 16.6 % (11.5-14.5); WBC 8.8 10x3/uL (4.8-10.8)
[2016-04-07 06:45] LABS: ANION GAP 15.3 mmol/L (8-16); CALCIUM 9.1 mg/dL (8.5-10.1); CARBON DIOXIDE 29.3 mmol/L (21.0-32.0); CREATININE - SERUM 1.4 mg/dL (0.6-1.3); POTASSIUM - SERUM 3.6 mmol/L (3.5-5.1)
--- NOTE | 2016-04-07 07:30 | NUR ---
RECEIVED PT IN BED AAOX4 RESP UNLABORED DENIES ANY NEEDS OR DISCOMFORT NAD NOTED
--- NOTE | 2016-04-07 08:51 | NUR ---
MUCINEX 600MG GIVEN PO. BARCODE WOULD NOT SCAN SO MANUAL DOCUMENTATION DONE WITH SANTHOSH IN ROOM PRECEPTOR. PT AMBULATES PER SELF TO BEDSIDE FOR DAILY WEIGHT MEASUREMENT.
--- NOTE | 2016-04-07 11:38 | NUR ---
FSBS 266 HUMALOG 10 UNITS GIVEN SQ
--- NOTE | 2016-04-07 15:46 | NUR ---
PATIENT'S O2 SATURATION IS 98% ON ROOM AIR ON EXERTION 99% RESTING ON ROOM AIR NO SOB NOTED
--- NOTE | 2016-04-07 16:52 | NUR ---
FSBS 192 HUMALOG 4 UNITS GIVEN SQ RT ABD
[2016-04-08 01:20] VITALS: BP 113/63
[2016-04-08 04:33] VITALS: BP 112/66
[2016-04-08 04:42] LABS: BASOPHILS 0.6 % (0.0-2.0); EOSINOPHILS 6.5 % (0-7); HEMATOCRIT 34.4 % (36.0-48.0); HEMOGLOBIN 10.3 g/dL (12-16); IMMATURE GRANULOCYTES 0.4 % (0-5); LYMPHOCYTES 28.6 % (15-50); MCH 23.3 pg (26.0-34.0); MCHC 29.9 g/dL (31.0-37.0); MCV 77.8 fL (80.0-100.0); MEAN PLATELET VOLUME 10.9 fL (7.4-10.4); MONOCYTES 7.6 % (2-11); NEUTROPHILS 56.3 % (40-80); PLATELET COUNT 269 10x3/uL (130-400); RBC 4.42 10x6/uL (4.00-5.40); RDW 16.5 % (11.5-14.5); WBC 9.1 10x3/uL (4.8-10.8)
[2016-04-08 04:54] LABS: ANION GAP 12.1 mmol/L (8-16); CALCIUM 9.2 mg/dL (8.5-10.1); CARBON DIOXIDE 30.2 mmol/L (21.0-32.0); CREATININE - SERUM 1.5 mg/dL (0.6-1.3); POTASSIUM - SERUM 3.3 mmol/L (3.5-5.1)
[2016-04-08 08:02] VITALS: BP 97/60
--- NOTE | 2016-04-08 10:25 | NUR ---
D/C PTS L.FA PIV WITH CATHETER TIP FULLY INTACT. IV WAS INFILTRATED UPON SHIFT ASSESSMENT AND NO FURTHER NEED R/T PT GOING TO BE D/C TODAY.
[2016-04-08] MEDS ORDERED: OMNICEF300 MG PO (11:02)
[2016-04-08] MEDS ORDERED: DOXYCYCLINE HY100 M2 PO (11:03)
--- NOTE | 2016-04-08 11:16 | NUR ---
Patient Name: EVANGELISTA FERREIRA Encounter No: [id number] : 1945 Primary Insurance: [employer] PPO MCR [employer]ANT Anticipated DC Date: Planned Disposition: Home WITH HOME HEALTH External Planned Provider: [facility] DCP follow-up note: CM RECEIVED ORDER FOR NEBULIZER, CM MET WITH PT IN ROOM AND DISCUSSED DISCHARGE NEEDS AND PLANNING. PT WOULD LIKE NEBULIZER FROM [facility] AND WOULD LIKE [facility] FOR NUSING TO ASSIST WITH NEW MEDICATIONS. PT REPORTS DAUGHTER OR GRANDCHILD TO PICK HER UP TODAY FOR DISCHARGE HOME. IMPORTANT MESSAGE FROM MEDICARE PROVIDED AND EXPLAINED. CM CALLED [facility], , SPOKE TO MARIAA AND PROVIDED REFERRAL INFORMATION, CM FAXED REFERRAL TO [phone], [facility] TO ARRANGE HOME HEALTH ADMISSION TOMORROW. CM CALLED [facility], , SPOKE TO LOLA AND PROVIDED REFERRAL INFORMATION AND FAXED REFERRAL TO [phone], REQUESTING HOME DELIVERY OF NEBULIZER AT PT'S REQUEST. Wolf Mayorga, CASE MANAGEMENT
--- NOTE | 2016-04-08 11:50 | NUR ---
FSBS 247. 8 UNITS GIVEN PER SS. PT SITTING UP IN BED RESTING QUIETLY DENIES ANY CURRENT PAIN OR NEEDS. CL IN REACH. WILL CTM.
--- NOTE | 2016-04-08 12:15 | NUR ---
DISCHARGE TEACHING PROVIDED. PAPERS SIGNED AND OBTAINED IN CHART. PT COLLECTING BELONGINGS AND WAITING ON HER TRASPORTATIONS AT THIS TIME.
--- NOTE | 2016-04-08 12:19 | NUR ---
PER DR. JAIN, CALLED IN [facility] 3[facility] QID #[id number] TO [facility] FOR DELIVERY WITH NEBULIZER TO PT HOME. SPOKE WITH CHAVA.
== END 2016-04-08 14:25 | disposition home or self-care (01) | DRG 280 ==
LOC: D.ER 12:49 → OBSVTIME 15:13 → D.M2 15:13
PROVIDERS: Emergency Medicine; Family Medicine; Nurse Practitioner Acute Care; ADMIT Internal Medicine Cardiovascular Disease
PROC: 4A023N7 Measurement of Cardiac Sampling and Pressure, Left Heart, Percutaneous Approach (ICD-10-PCS; 2016-04-03)
PROC: B2111ZZ Fluoroscopy of Multiple Coronary Arteries using Low Osmolar Contrast (ICD-10-PCS; principal; 2016-04-03 08:30)
DX: I21.4 Non-ST elevation (NSTEMI) myocardial infarction (principal); I50.23 Acute on chronic systolic (congestive) heart failure; J96.01 Acute respiratory failure with hypoxia; J18.9 Pneumonia, unspecified organism; I13.0 Hypertensive heart and chronic kidney disease with heart failure and stage 1 through stage 4 chronic kidney disease, or unspecified chronic kidney disease; I25.10 Atherosclerotic heart disease of native coronary artery without angina pectoris; G47.33 Obstructive sleep apnea (adult) (pediatric); I73.9 Peripheral vascular disease, unspecified; I08.3 Combined rheumatic disorders of mitral, aortic and tricuspid valves; J20.9 Acute bronchitis, unspecified; D50.9 Iron deficiency anemia, unspecified; E78.5 Hyperlipidemia, unspecified; E11.40 Type 2 diabetes mellitus with diabetic neuropathy, unspecified; E11.22 Type 2 diabetes mellitus with diabetic chronic kidney disease; N18.3 Chronic kidney disease, stage 3 (moderate); Z95.5 Presence of coronary angioplasty implant and graft; Z87.891 Personal history of nicotine dependence

== ENCOUNTER → 2016-05-17 08:17 | Outpatient (CLI) | payer MEDICARE ==
[2016-04-04 12:42] VITALS: BMI 28.3
[~2016-05-17 08:17] MED LIST changes: +DOXYCYCLINE HY100 M2 PO; +FUROSEMIDE20 MG PO; +ISOSORBIDE MONO60 M1 PO; +METOPROLOL TAR100 M1 PO; +OMNICEF300 MG PO; +[UNRECOGNIZED DRUG - OTHER]
== END | disposition home or self-care (01) ==
LOC: D.RT 05-16 10:00
DX: J96.01 Acute respiratory failure with hypoxia (principal); J44.9 Chronic obstructive pulmonary disease, unspecified

== ENCOUNTER → 2016-05-24 14:30 | Outpatient (CLI) | payer MEDICARE ==
[2016-04-04 12:42] VITALS: BMI 28.3
[2016-05-24 14:47] LABS: ANION GAP 14.6 mmol/L (8-16); CALCIUM 8.9 mg/dL (8.5-10.1); CARBON DIOXIDE 25.8 mmol/L (21.0-32.0); CREATININE - SERUM 1.1 mg/dL (0.6-1.3); POTASSIUM - SERUM 3.4 mmol/L (3.5-5.1)
== END | disposition home or self-care (01) ==
LOC: D.LABREF 14:30
PROVIDERS: Family Medicine
DX: I50.23 Acute on chronic systolic (congestive) heart failure (principal); E11.22 Type 2 diabetes mellitus with diabetic chronic kidney disease

== ENCOUNTER → 2016-07-04 12:47 | Outpatient (CLI) | payer MEDICARE ==
[2016-04-04 12:42] VITALS: BMI 28.3
[2016-07-04 14:22] LABS: APPEARANCE CLEAR (CLEAR); BILIRUBIN NEGATIVE (NEGATIVE); COLOR YELLOW (YELLOW); GLUCOSE 1000 mg/dL (NEGATIVE); KETONE NEGATIVE (NEGATIVE); LEUKOCYTE ESTERASE 1+ (NEGATIVE); NITRITE NEGATIVE (NEGATIVE); PROTEIN NEGATIVE (NEGATIVE); UROBILINOGEN NORMAL (NORMAL)
[2016-07-04 14:25] LABS: BACTERIA FEW /hpf (NONE SEEN); RED CELLS - URINE RARE /hpf (0-5); YEAST >1+ /hpf (NONE SEEN)
[2016-07-04 14:26] LABS: MUCUS <1+ /lpf (NONE SEEN)
[2016-07-04 14:32] LABS: CHOL - HDL RATIO 7.1 ratio (2.3-4.1)
== END | disposition home or self-care (01) ==
LOC: D.LABREF 12:47
PROVIDERS: Family Medicine
DX: E11.9 Type 2 diabetes mellitus without complications (principal); I11.0 Hypertensive heart disease with heart failure; I50.9 Heart failure, unspecified

== ENCOUNTER 2017-03-01 14:57 | Emergency (ER) | payer MEDICARE ==
[2016-10-13 11:07] VITALS: BMI 26.8
[~2017-03-01 14:57] MED LIST changes: +COREG12.5 MG PO; +GABAPENTIN100 MG PO; -IMDUR30 MG PO; +LISINOPRIL2.5 MG PO
[2017-03-01 16:59] LABS: BASOPHILS 0.5 % (0-2); EOSINOPHILS 4.5 % (0-7); HEMATOCRIT 29.8 % (36.0-48.0); IMMATURE GRANULOCYTES 0.3 % (0-5); LYMPHOCYTES 19.1 % (15-50); MCH 25.5 pg (26.0-34.0); MCHC 30.2 g/dL (31.0-37.0); MCV 84.4 fL (80.0-100.0); MONOCYTES 7.9 % (2-11); NEUTROPHILS 67.7 % (40-80); PLATELET COUNT 274 10x3/uL (130-400); RBC 3.53 10x6/uL (4.00-5.40); RDW 15.7 % (11.5-14.5); WBC 7.4 10x3/uL (4.8-10.8)
[2017-03-01 17:31] LABS: ALBUMIN 3.5 g/dL (3.4-5.0); BILIRUBIN - TOTAL 0.76 mg/dL (0.2-1.3); CALCIUM 8.7 mg/dL (8.5-10.1); CARBON DIOXIDE 27.8 mmol/L (21.0-32.0); CREATININE - SERUM 1.2 mg/dL (0.6-1.3); POTASSIUM - SERUM 3.8 mmol/L (3.5-5.1); PROTEIN - SERUM 7.1 g/dL (6.4-8.2)
== END 2017-03-01 19:44 | disposition home or self-care (01) ==
LOC: D.ER 14:57
PROVIDERS: Physician Assistant
DX: J81.0 Acute pulmonary edema (principal); D64.9 Anemia, unspecified; J44.9 Chronic obstructive pulmonary disease, unspecified; E11.9 Type 2 diabetes mellitus without complications